=== PATIENT | male | born 1990 | race Asian ===

== ENCOUNTER 2018-12-27 20:26 | Emergency (ER) | payer MEDICAID ==
[~2018-12-27] VITALS: Ht 177.8 cm; Wt 131.5 kg
--- NOTE | 2018-12-27 20:54 | NUR ---
Pt ambulates to ER with c/o intermittent blurred vision in both eyes since yesterday night. Pt states his vision would occasionally become blurry for 5-7 seconds x 5 episodes. Pt denies any blurred vision at this time. Pt has no other c/o at this time. AAOx4. Ambulatory. Able to speak in complete sentences. Speech clear. No headache.
--- NOTE | 2018-12-27 21:53 | NUR ---
Dr. Ceasar GELLER MD at bedside to evaluate pt.
--- NOTE | 2018-12-27 22:29 | NUR ---
Patient discharged to home in stable conditon. Written and verbal after care instructions given. Patient verbalizes understanding of instructions. Pt ambulated out of ER in stable gait. All belongings w pt. VSS. NAD noted.
[2018-12-27 22:30] VITALS: BP 157/88
== END 2018-12-27 22:31 | disposition home or self-care (01) ==
LOC: ER 20:28
DX: H57.89 Other specified disorders of eye and adnexa (principal)
CPT/HCPCS: A4663